=== PATIENT | male | born 1935 | race Caucasian/White ===

== ENCOUNTER 2018-05-22 12:28 | Emergency (ER) | payer MEDICARE ==
[~2018-05-22] VITALS: Ht 180.3 cm; Wt 79.4 kg
[~2018-05-22 12:28] MED LIST: GLIMEPIRIDE1 MG PO; LEVAQUIN500 MG PO; [UNRECOGNIZED DRUG - OTHER]
[2018-05-22] MEDS ORDERED: OMEPRAZOLE20 M1 PO (12:40)
[2018-05-22] MEDS ORDERED: PLAVIX75 MG PO (12:40)
[2018-05-22] MEDS ORDERED: NORVASC5 MG PO (12:40)
[2018-05-22] MEDS ORDERED: LOSARTAN POTASS25 MG PEG (12:40)
[2018-05-23] MEDS ORDERED: BACITRACIN ZINC 15 GM OINT TOP SCH (09:00)
== END 2018-05-22 13:50 | disposition home or self-care (01) ==
LOC: FSED 12:28
DX: S60.512A Abrasion of left hand, initial encounter (principal); S60.511A Abrasion of right hand, initial encounter; S40.212A Abrasion of left shoulder, initial encounter; Y04.0XXA Assault by unarmed brawl or fight, initial encounter; Y92.008 Other place in unspecified non-institutional (private) residence as the place of occurrence of the external cause; I10 Essential (primary) hypertension; K21.9 Gastro-esophageal reflux disease without esophagitis
CPT/HCPCS: 99284